=== PATIENT | male | born 1980 | race Caucasian/White ===

== ENCOUNTER 2016-05-18 13:44 | Emergency (ER) | payer MEDICAID, OTHER ==
[2016-05-18 13:53] VITALS: RESP 18; TEMP 98.1
--- NOTE | 2016-05-18 14:09 | ED PDOC ---
HPI:Nausea, Vomiting, Diarrhea Time Seen by Provider: 05/18/16 14:05 Chief Complaint (Nursing): GI Problem Chief Complaint (Provider): Hematochezia History Per: Patient History/Exam Limitations: no limitations Onset/Duration Of Symptoms: Days (today) Current Symptoms Are (Timing): Still Present Have you had recent travel within the past 21 days to any of the following countries: [place], [place], [place] or [place]?: No Severity: Mild Associated Symptoms: denies: Vomiting, Other (no abdominal pain) Exacerbating Factors: None Alleviating Factors: None Additional Complaint(s): Yariel Chaudhary is a 36 year old male, with no pertinent past medical history, who presents to the ED on 05/18/16 for the evaluation of a mild amount of bright red hematochezia that he had experienced this morning. Denies abdominal pain or vomiting. Patient notes that he has experienced 3-4 similar episodes within the past year, but that today he had bled a little more than usual, prompting ED visit. No prior medical evaluations for this issue, does not use blood thinners. PMD: Ivan Past Medical History Reviewed: Historical Data, Nursing Documentation, Vital Signs Vital Signs: Last Vital Signs Temp 98.1 F 05/18/16 13:51 Pulse 76 05/18/16 13:51 Resp 18 05/18/16 13:51 BP 139/78 05/18/16 13:51 Pulse Ox 100 05/18/16 13:51 - Medical History PMH: No Chronic Diseases - Surgical History Surgical History: No Surg Hx - Family History Family History: States: Unknown Family Hx - Home Medications Home Medications: Ambulatory Orders Medication Instructions Recorded Diazepam [Valium] 2 mg PO DAILY #10 tab 12/11/14 Naproxen 500 mg PO BID #20 tab 12/11/14 Hard Fat/Phenylephrine [place] 1 sup RC DAILY #7 sup 05/18/16 [Anusol Suppository] - Allergies Allergies/Adverse Reactions: Allergies Allergy/AdvReac Type Severity Reaction Status Date / Time alcohol Allergy RASH Verified 05/18/16 13:50 Review of Systems Constitutional: Negative for: Fever, Chills Gastrointestinal: Positive for: Hematochezia (mild). Negative for: Vomiting, Abdominal Pain, Hematemesis Physical Exam - Reviewed Nursing Documentation Reviewed: Yes Vital Signs Reviewed: Yes - Physical Exam Appears: Positive for: Non-toxic, No Acute Distress Head Exam: Positive for: ATRAUMATIC, NORMOCEPHALIC Skin: Positive for: Normal Color, Warm, Dry. Negative for: Pallor Eye Exam: Positive for: Normal appearance, PERRL Cardiovascular/Chest: Positive for: Regular Rate, Rhythm. Negative for: Murmur Respiratory: Positive for: Normal Breath Sounds. Negative for: Respiratory Distress Gastrointestinal/Abdominal: Positive for: Normal Exam, Soft. Negative for: Tenderness Back: Positive for: Normal Inspection Rectal: Positive for: Blood Streaked Stool (small streaks of blood). Negative for: Hemorrhoids Neurologic/Psych: Positive for: Alert, Oriented - Laboratory Results Result Diagrams: 05/18/16 15:17 05/18/16 15:17 - ECG O2 Sat by Pulse Oximetry: 100 (RA) Pulse Ox Interpretation: Normal Medical Decision Making Medical Decision Makin:05 Initial Impression: hemorrhoid Initial Plan: * Labs * Reevaluation Scribe Attestation: Documented by Anitra Judd, acting as a scribe for Elsy Purcell PA-C. Provider Scribe Attestation: All medical record entries made by the Scribe were at my direction and personally dictated by me. I have reviewed the chart and agree that the record accurately reflects my personal performance of the history, physical exam, medical decision making, and the department course for this patient. I have also personally directed, reviewed, and agree with the discharge instructions and disposition. Disposition - Clinical Impression Clinical Impression: Rectal bleeding - Patient ED Disposition Is Patient to be Admitted: No - Disposition Referrals: Freedom Faulkner MD [Staff Provider] - Disposition: Routine/Home Disposition Time: 16:05 Condition: FAIR Prescriptions: Hard Fat/Phenylephrine [place] [Anusol Suppository] 1 sup RC DAILY #7 sup Instructions: Rectal Bleeding (ED)
[2016-05-18 15:25] LABS: BASO % 0.1 % (0.0-2.0); EOS # 0.1 K/uL (0.0-0.7); EOS % 0.9 % (0.0-4.0); HEMATOCRIT 45.7 % (35.0-51.0); LYMPH # 1.6 K/uL (1.0-4.3); MEAN CORPUSCULAR HEMOGLOBIN 29.8 pg (27.0-31.0); MEAN CORPUSCULAR HGB CONC 33.8 g/dL (33.0-37.0); MEAN PLATELET VOLUME 8.2 fl (7.2-11.7); MONO # 0.6 K/uL (0.0-0.8); MONO % 7.3 % (0.0-10.0); NEUT # 6.2 K/uL (1.8-7.0); NEUT % 72.7 % (50.0-75.0); NRBC % 0.1 % (0.0-0.0); RED CELL DISTRIBUTION WIDTH 14.2 % (11.5-14.5); WHITE BLOOD COUNT 8.4 K/uL (4.8-10.8)
[2016-05-18 15:46] LABS: ALB/GLOB RATIO 1.5 (1.0-2.1); ALKALINE PHOSPHATASE 78 U/L (38-126); ALT/SGPT 41 U/L (21-72); AST/SGOT 46 U/L (17-59); BILIRUBIN,TOTAL 0.9 mg/dl (0.2-1.3); BLOOD UREA NITROGEN 10 mg/dl (9-20); CALCIUM 9.4 mg/dL (8.4-10.2); CARBON DIOXIDE 27 mmol/L (22-30); CHLORIDE 105 mmol/L (98-107); GFR AFRICAN-AMERICAN > 60; GLUCOSE,RANDOM 83 mg/dL (75-110); POTASSIUM 4.1 MMOL/L (3.6-5.0); SODIUM 144 mmol/l (132-148); TOTAL PROTEIN 7.4 G/DL (6.3-8.2)
[2016-05-18 16:37] VITALS: BP 119/69; PULSE 73; O2SAT 98
== END 2016-05-18 16:39 | disposition home or self-care (01) ==
LOC: H.ER 13:44
DX: K64.9 Unspecified hemorrhoids (principal)